=== PATIENT | female | born 1955 | race Caucasian/White ===

== ENCOUNTER → 2022-06-15 | Outpatient (CLI) | payer MEDICARE, BC, SELFPAY ==
[2022-06-15 12:03] LABS: Hematocrit 40.7 % (37-47); Hemoglobin 12.8 g/dL (12.0-15.0); Mean Corp Hgb Conc 31.4 g/dL (32-36); Mean Corpuscular Volume 92.1 fL (81-99); Mean Platelet Vol. 11.4 fl (6.2-12.0); Platelet Count 208 K/mm3 (150-450); RBC Distribution Width CV 15.5 % (11.6-14.6); RBC Distribution Width SD 53.1 fl (35.1-43.9); Red Blood Count 4.42 M/mm3 (4.2-5.4); White Blood Count 6.8 K/mm3 (4.4-11.0)
[2022-06-15 12:26] LABS: Anion Gap 2 (5-15); BUN 14 mg/dL (7-18); Calcium,Total 9.1 mg/dL (8.5-10.1); Chloride 106 mmol/L (98-107); Creatinine, Serum 1.17 mg/dL (0.55-1.02); EST Glomerular Filtration Rate 49 mL/min (>60); Est Glom Filt Rate - Afr Amer 59 mL/min (>60); Glucose 94 mg/dL (74-106); Potassium 4.4 mmol/L (3.5-5.1); Sodium Level 140 mmol/L (136-145)
== END | disposition home or self-care (01) ==
PROVIDERS: Visit Provider Urology
DX: Z01.812 Encounter for preprocedural laboratory examination (principal)
CPT/HCPCS: 36415; 80048; 85027

== ENCOUNTER → 2022-06-16 | Outpatient (CLI) | payer MEDICARE, BC, SELFPAY ==
--- NOTE | 2022-06-16 12:33 | EKG12_ITS ---
Test Reason : PRE OP Blood Pressure : / mmHG Vent. Rate : 076 BPM Atrial Rate : 076 BPM P-R Int : 156 ms QRS Dur : 070 ms QT Int : 372 ms P-R-T Axes : 031 -23 043 degrees QTc Int : 418 ms Normal sinus rhythm Left ventricular hypertrophy Abnormal ECG Confirmed by SOULEYMANE FINLEY, JORGE ([id number]), assignment editor GINA OSUNA ([id number]) on 06/17/2022 11:18:08 AM Referred By: Marlo Schmitt Confirmed By:JORGE COMER MD
== END | disposition home or self-care (01) ==
LOC: PSN 12:31
PROVIDERS: Referring Provider Urology; Visit Provider Urology
DX: Z01.810 Encounter for preprocedural cardiovascular examination (principal)
CPT/HCPCS: 93005

== ENCOUNTER → 2022-06-21 | Outpatient (CLI) | payer MEDICARE, BC, SELFPAY ==
--- NOTE | 2022-06-21 13:34 | RAD_ITS ---
STUDY: X-RAY - ABDOMEN/PELVIS REASON FOR EXAM: Female, 66 years old. HYDRONEPHROSIS TECHNIQUE: Single AP view of the abdomen / pelvis. COMPARISON: None. FINDINGS: There is a moderate amount of colonic fecal material. A right-sided double-J stent catheter is seen with the proximal tip in the proximal right ureter/pelvis with the distal tip in the urinary bladder. Normal soft tissue structures. There are diffuse degenerative changes of the visualized lumbar spine. Prior right total hip replacement. Marked degree of joint space narrowing and osteoarthritis of the left hip joint. RAD/Abdomen Single View IMPRESSION: A right-sided double-J stent catheter is seen with the proximal tip in the region of either the right renal pelvis or proximal right ureter and the distal portion in the right side of the urinary bladder. Electronically Signed: Eb Hughes MD at 14:27 EDT ,
== END | disposition home or self-care (01) ==
LOC: RAD 13:28
PROVIDERS: Referring Provider Urology; Visit Provider Urology
DX: N13.1 Hydronephrosis with ureteral stricture, not elsewhere classified (principal)
CPT/HCPCS: 74018

== ENCOUNTER 2022-06-22 05:20 | Day surgery (SDC) | payer MEDICARE, BC, SELFPAY ==
[2022-06-22] MEDS: Lactated Ringers 1,000 ML 15 ML IV (06:25)
[2022-06-22 06:32] VITALS: BP 148/70; PULSE 60; RESP 18; TEMP 36.5; O2SAT 98; BMI 30.7
[2022-06-22] MEDS: Cefazolin 2 GM in 0.9% Normal Saline 100 ML IV (07:19)
[2022-06-22] MEDS: Lidocaine Jelly 2% 20 ML Syringe (URO-JET) 1 APPLIC (07:33)
--- NOTE | 2022-06-22 07:41 | OP.PCM_ITS ---
Report of Operation Date of Procedure: 06/22/22 Pre-Operative Diagnosis: Right hydronephrosis severe with ureteral stricture Post-Operative Diagnosis: Same Surgery/Procedure Performed:: Cystoscopy right retrograde pyelogram interpretation of fluoroscopic images and right stent placement Description of Surgical Findings:: Indication is a 66-year-old female who had a percutaneous procedure for a very large impacted stone in the proximal ureter there was concern that she could develop a scar tissue in the kidney the kidney could scarred down and follow-up in my office she did have hydronephrosis on the right side it took her to surgery did a retrograde pyelogram confirmed a stricture in the proximal ureter place a 6 Micronesian by 26 cm stent she states the first 3 days she had no pain whatsoever was really happy with the results and then suddenly she developed pain on Tuesday came to the office we did a KUB demonstrated the stent had migrated out of position and was not draining the kidney anymore so today took her back the next day today for a cystoscopy stent placement Patient was taken back to the operating room after smooth induction of a MAC local she was placed in dorsolithotomy position. The urethra vaginal area prepped and draped in usual sterile fashion, went into the bladder 21 Micronesian rigid cystourethroscope, grabbed the existing stent, pulled out the meatus, under fluoroscopy I confirmed that the stent was not in good position had migrated down the ureter, I then advanced a wire through the stent, fortunate the wire went through the area of stricture quite easily and up into the kidney and coiled, I then advanced a 5 Micronesian open-ended catheter behind this performed a retrograde pyelogram to confirm severely hydronephrotic right kidney, I then backloaded the stent off this and then put the wire up in the kidney and coiled it, I backloaded the scope over the wire, I then decided to put in a 7 Micronesian 26 cm stent I think with a little larger stent more stiffness the stent will migrate. So after putting the 7 Micronesian then I went up all the way to the kidney without any difficulties. I pulled the wire the stent coiled in the kidney, x- ray was taken to document proper position, and then coiled in the bladder, I drained the bladder patient anesthetic was reversed and she will be taken back to the PACU in good condition and she will follow-up she will get a renal scan to evaluate function and we can either consider a nephrectomy if it is poor for poorly functioning kidney or a repair if she is still has good function of the kidney.. Surgeon: Marlo Schmitt Type of Anesthesia: MAC and Topical Anesth Drains: 7 fr stent Admit VTE Documentation VTE Present on Admission: No VTE Mechan Device Prophylaxis: SCD's
--- NOTE | 2022-06-22 07:44 | DCINST_ITS ---
Discharge Instructions Diet Discharge Diet: No restrictions and Light diet - advance as tolerated Follow Up Care Please Follow Up With: Marlo Schmitt MD Test Results: Test results from this visit will be discussed in further detail at your follow- up appointment, if applicable. Discharge Plan Admission Primary Reason for Your Visit: cysto stent right Attending Provider: Marlo Schmitt Primary Care Provider: Care Physician,Maricel Primary Discharge Orders/Prescriptions Prescriptions: Continued citalopram 20 mg tablet 20 mg PO DAILY atorvastatin 20 mg tablet 20 mg PO DAILY montelukast 10 mg tablet 10 mg PO DAILY Label Comments: TAKE 1 TABLET BY MOUTH EVERY DAY IN THE EVENING lisinopril 5 mg tablet 5 mg PO DAILY Label Comments: TAKE 1 TABLET BY MOUTH EVERY DAY gabapentin 300 mg capsule 300 mg PO QHS PRN (Reason: Pain) celecoxib 200 mg capsule 200 mg PO DAILY PRN PRN (Reason: Pain) estradiol 0.01 % (0.1 mg/gram) Cream 1 appful VAGINAL .2X PER WEEK Rx Instructions: for 14 days Referrals / Follow Up: Marlo Schmitt MD [Med Staff - Active Staff] - Care Physician,No Primary [Primary Care Provider] - Disposition Disposition (needs filled in before D/C Order can be placed): Home, Self Care
--- NOTE | 2022-06-22 07:45 | HP.PCM_ITS ---
HPI - General HPI Narrative OSWALDO PAYNE, is a 66 F who presents for stent placement on the right side the stent had migrated out of position. [facility] Medical History (Updated 06/21/22 @ 15:48 by Melissa Ambriz) Alcohol use Ambulates with cane Arthritis Asthma Depression Easy bruising Hay fever Hemorrhoids High cholesterol History of hiatal hernia Hypertension Kidney disease Knee pain Lab test negative for COVID-19 virus Non-smoker Post-menopausal SOB (shortness of breath) Home Medications atorvastatin 20 mg tablet 20 mg PO DAILY 06/01/21 [History Last Taken Unknown] citalopram 20 mg tablet 20 mg PO DAILY 06/01/21 [History Last Taken Unknown] lisinopril 5 mg tablet 5 mg PO DAILY 06/01/21 [History Last Taken Unknown] montelukast 10 mg tablet 10 mg PO DAILY 06/01/21 [History Last Taken Unknown] celecoxib 200 mg capsule 200 mg PO DAILY PRN PRN Pain 06/13/22 [History Last Taken Unknown] gabapentin 300 mg capsule 300 mg PO QHS PRN Pain 06/13/22 [History Last Taken Unknown] estradiol 0.01% (0.1 mg/gram) vaginal cream 1 appful vaginal .2X PER WEEK 06/21/22 [History Last Taken Unknown] Allergy/AdvReac Type Severity Reaction Status Date / Time erythromycin base Allergy Anaphylaxis Verified 06/21/22 15:35 mushroom Allergy Vomiting Verified 06/21/22 15:35 Family History Mother CVA (cerebral vascular accident) Heart disease Arthritis Dementia Father Dementia CVA (cerebral vascular accident) Surgical History (Updated 06/21/22 @ 15:41 by Melissa Ambriz) History of colonoscopy History of cystoscopy History of lithotripsy History of nephrostomy History of total hip replacement Social History Smoking Status: Never smoker alcohol intake: never Vital Signs Vital Signs Vital Signs: 06/22/22 06:32 06/22/22 06:32 Temperature 97.7 F L Temperature Source Temporal Pulse Rate 60 Respiratory Rate 18 Respiratory Pattern Normal Blood Pressure 148/70 H Blood Pressure Mean 96 Blood Pressure Source Monitor Blood Pressure Position Semi-Fowlers Blood Pressure Location Right Arm Pulse Ox 98 Oxygen Delivery Method Room Air Weight Weight: 78.744 kg Body Mass Index (BMI) 30.7
[2022-06-22 07:53] VITALS: BP 125/56; BP 148/70; PULSE 65; RESP 18; TEMP 36.3; O2SAT 99
[2022-06-22 07:59] VITALS: BP 127/63; BP 148/70; PULSE 59; RESP 18; O2SAT 95
[2022-06-22 08:15] VITALS: BP 128/64; BP 148/70; PULSE 62; RESP 16; O2SAT 97
[2022-06-22 08:22] VITALS: BP 137/70; BP 148/70; PULSE 58; RESP 16; TEMP 36.4; O2SAT 99
[2022-06-22 08:55] VITALS: BP 148/70
== END 2022-06-22 09:08 | disposition home or self-care (01) ==
LOC: SDC 05:22 → AC 05:23
PROVIDERS: Referring Provider Urology; Visit Provider Urology
PROC: (CPT 52332; principal; 2022-06-22 07:20)
DX: N13.1 Hydronephrosis with ureteral stricture, not elsewhere classified (principal); I10 Essential (primary) hypertension; E78.00 Pure hypercholesterolemia, unspecified; Z79.899 Other long term (current) drug therapy
CPT/HCPCS: 52332; 00910; 76000; J7120; C1769; C1874; J2405

== ENCOUNTER → 2022-07-01 | Outpatient (CLI) | payer MEDICARE, BC, SELFPAY ==
--- NOTE | 2022-07-01 09:53 | NM_ITS ---
CLINICAL: 66-year-old female with history of hydronephrosis. 99m Tc MAG3 DIURETIC RENAL SCINTIGRAPHY COMPARISON: None available FINDINGS: Following the intravenous administration of 11.0 mCi of 99m Tc MAG3, renal images reveal: 1. The flow study demonstrates decreased, delayed arterial phase distribution of the radiopharmaceutical to the right kidney. Flow to the left kidney is relatively normal. 2. Immediate static delayed nephrogram images depict prompt, homogeneous tracer concentration by the renal parenchyma of the left kidney. Uptake in the right kidney is delayed and decreased. Collecting structure visualization is noted at approximately 2 minutes following tracer concentration in the left kidney and 8-10 minutes post radiopharmaceutical administration in the right kidney. Washout of the radiopharmaceutical by the renal parenchyma of the left kidney is qualitatively normal and is delayed and decreased in the right renal unit. 3. The [id number]-[id number] ratio of total renal parenchymal function was calculated to be 27/33. Furosemide 10 mg was administered intravenously. The post Lasix T ? washout of the left kidney collecting system was calculated to be less than 10 minutes and > 20 minutes in the right kidney, (normal < 10 minutes). After an initial decrease in count statistics in the right kidney collecting system following LASIX administration there is a relative plateau. NM/Renal Scan w/ Pharm Intervent IMPRESSION: 1. There is scintigraphic evidence of preserved left kidney renal parenchymal-cortical function. Cortical dysfunction is defined in the right kidney renal parenchyma. 2. A normal response to induced diuresis is demonstrated in the left kidney. An abnormal response to LASIX administration is defined in the right kidney which may represent functional and/or mechanical obstruction. 3. The specificity of the above abnormal response involving the right kidney collecting system is decreased when the contribution to total renal parenchymal function is less than 30%. (Tim and Abbi, Urol Radiol 5: 189, 1983 Cristiana and Devon, Urol Clin NA 12: 133, 1985). Electronically Signed: Jairo Arturo, at 22:12 EDT ,
== END | disposition home or self-care (01) ==
PROVIDERS: PCP Nurse Practitioner Family; Referring Provider Urology; Visit Provider Urology
DX: N13.1 Hydronephrosis with ureteral stricture, not elsewhere classified (principal)
CPT/HCPCS: 78708; A9562; J1940

== ENCOUNTER 2022-07-16 12:57 | Day surgery (SDC) | payer MEDICARE, BC, SELFPAY ==
--- NOTE | 2022-07-16 | VAGMU_PTH ---
PATIENT: OSWALDO PAYNE LOC: [facility] U#:[id number] AGE/SX: 66/F ROOM: RE07/16/[address]: Dr. Sabiha Jaeger DO : 1955 BED: DIS: 07/16/2022 SPEC #: [id number] RECD: 07/16/22 17:38 STATUS: YAAKOV CHICHI #: [id number] YOLANDA: 07/16/22 00:[address]: Sabiha Jaeger DEPT: SURGICAL PATHOLOGY RECD BY: Khoi Jiménez ENTERED: 07/20/22 08:55 SP TYPE: VAG MUCOSA OTHR DR: SCOTT Tee Tissues: Vagina, NOS Procedures: Surgery Specimen Level IV HEADER OPERATION: D & C, vaginal polyp PRE-OP DIAGNOSIS: Cervical polyp TISSUE SUBMITTED: Vaginal polyp MICROSCOPIC DIAGNOSIS Vaginal polyp, biopsy: Benign squamous epithelial polyp with reactive changes. VLADIMIR:leander 07/21/2022 MICROSCOPIC DESCRIPTION Slides are reviewed. GROSS DESCRIPTION Received in fixative is one container labeled with the patient's name and designated vaginal polyp. The specimen consists of a piece of hemorrhagic polypoid tissue measuring 1.2 x 0.5 x 0.2 cm. The entire specimen is submitted in one cassette. / SJ:rg 07/20/2022 TC:5 CPT: 06353
[2022-07-16 13:39] VITALS: BP 125/59; PULSE 69; RESP 16; TEMP 37.1; O2SAT 96; BMI 31.1
[2022-07-16] MEDS: Lactated Ringers 1,000 ML 15 ML IV (13:45)
[2022-07-16] MEDS: Lidocaine 1% (20 ml mdv) 20 ML Vial (15:40)
[2022-07-16] MEDS: Silver Nitrate (BKC) 1 EACH (15:43)
--- NOTE | 2022-07-16 15:46 | DCINST_ITS ---
Discharge Instructions Diet Discharge Diet: No restrictions Activity Discharge Activity: May Drive (once you are more than 24 hours out from surgery) and May Shower (once you are more than 24 hours out from surgery) May resume sexual activity in: 1 week (no intercourse, tampons, hot tubs, baths, or pools for 1 week) Weight Bearing Status: Weight bearing as tolerated Lifting Restrictions: none Dressing / Incision Cleanse incision/area with: Soap & Water Follow Up Care Please Follow Up With: Sabiha Jaeger DO When: 1 week Test Results: Test results from this visit will be discussed in further detail at your follow- up appointment, if applicable. Discharge Plan Admission Primary Reason for Your Visit: surgery Attending Provider: Sabiha Jaeger Primary Care Provider: Mara Oviedo NP Discharge Orders/Prescriptions Prescriptions: Continued citalopram 20 mg tablet 20 mg PO DAILY atorvastatin 20 mg tablet 20 mg PO DAILY montelukast 10 mg tablet 10 mg PO DAILY Label Comments: TAKE 1 TABLET BY MOUTH EVERY DAY IN THE EVENING lisinopril 5 mg tablet 5 mg PO DAILY Label Comments: TAKE 1 TABLET BY MOUTH EVERY DAY gabapentin 300 mg capsule 300 mg PO QHS PRN (Reason: Pain) celecoxib 200 mg capsule 200 mg PO DAILY PRN PRN (Reason: Pain) estradiol 0.01 % (0.1 mg/gram) Cream 1 appful VAGINAL .2X PER WEEK Rx Instructions: for 14 days fluticasone propionate [Flovent HFA] 220 mcg/actuation Hfa Aerosol Inhaler 1 puff INHALATION DAILY multivitamin Capsule 1 cap PO DAILY Referrals / Follow Up: Mara Oviedo NP, CONFIGURATION MANAGEMENT SPECIALIST-C [Primary Care Provider] - Disposition Disposition (needs filled in before D/C Order can be placed): Home, Self Care
--- NOTE | 2022-07-16 15:48 | OP.PCM_ITS ---
Problems Associated Problem List Diagnoses (1) Vaginal polyp: Report of Operation Date of Procedure: 07/16/22 Pre-Operative Diagnosis: Polyp noted on pelvic US Post-Operative Diagnosis: Vaginal polyp, stenotic cervix, atrophic vagina Surgery/Procedure Performed:: Exam under anesthesia, vaginal polyp removal Description of Surgical Findings:: Narrow introitus. Atrophic vagina and cervix flush with vaginal tissue. Stenotic cervix. A small < 1cm vaginal polyp was noted along the anterior vaginal wall underneath the urethra. Surgeon: Sabiha Jaeger sulfonation equipment operator: None Type of Anesthesia: MAC Special Medications: None Specimen's removed: Vaginal polyp Drains: None Estimated Blood Loss (mL): < 50 Fluids Replaced: 800 Description of Procedure: Patient was taken to the operating room where MAC anesthesia was induced and found to be adequate. She was prepped and draped in the dorsal lithotomy position using yellowfin stirrups. A weighted speculum was unable to be placed in the vagina. A right angle retractor was placed and the cervix was unable to be visualized. A bimanual exam was performed noting an atrophic cervix, normal sized uterus that is mobile, limited bimanual exam given obesity. A medium size speculum was then placed in the vagina and the cervix was able to be visualized. Good support of the uterus was noted. The cervix and vaginal tissue was atrophic. The cervix was flush with the flush with the vagina. No obvious cervical os was noted. The anterior lip of the cervix was grasped with a single-tooth tenaculum. The cervix was attempted to be dilated but unable to be dilated. During the vaginal exam a small, subcentimeter vaginal polyp was noted along the anterior vaginal wall. 2 cc of 1% lidocaine was injected at the base, and the polyp was retracted using an Allis clamp. Using scissors the polyp was removed at the base, and the base was made hemostatic with silver nitrate and pressure. Bleeding was hemostatic. All instruments removed from the vagina. Vaginal sweep was performed. Instrument and sponge counts were correct. The patient was taken to recovery in stable condition. Grafts/Implants Used: None Procedure Start Time: 15:26 Procedure Stop Time: 15:44 Complications None Admit VTE Documentation VTE Present on Admission: No VTE Mechan Device Prophylaxis: SCD's
[2022-07-16 15:54] VITALS: BP 125/59; BP 143/75; PULSE 77; RESP 16; TEMP 36.4; O2SAT 96
[2022-07-16 16:00] VITALS: BP 125/59; BP 141/67; PULSE 74; RESP 16; O2SAT 96
[2022-07-16 16:05] VITALS: BP 125/59; BP 134/73; PULSE 69; RESP 16; O2SAT 97
[2022-07-16 16:10] VITALS: BP 125/59; BP 128/71; PULSE 71; RESP 16; TEMP 36.9; O2SAT 100
[2022-07-16 16:35] VITALS: BP 125/59
== END 2022-07-16 16:47 | disposition home or self-care (01) ==
LOC: SDC 12:57 → AC 13:01
PROVIDERS: PCP Nurse Practitioner Family; Referring Provider Obstetrics & Gynecology; Visit Provider Obstetrics & Gynecology
PROC: 0UB98ZZ Excision of Uterus, Via Natural or Artificial Opening Endoscopic (ICD-10-PCS; CPT 58558; principal; 2022-07-16 14:35)
DX: N88.8 Other specified noninflammatory disorders of cervix uteri (principal); N84.2 Polyp of vagina; F32.A Depression, unspecified; J45.909 Unspecified asthma, uncomplicated; E78.00 Pure hypercholesterolemia, unspecified; I10 Essential (primary) hypertension; Z79.899 Other long term (current) drug therapy
CPT/HCPCS: 58558; 00952; 86850; 86900; 86901; 88304; 88305; J7120; J2405

== ENCOUNTER → 2022-08-17 | Outpatient (CLI) | payer MEDICARE, BC, SELFPAY | END | disposition home or self-care (01) | LOC: LABSPEC 16:52 | PROVIDERS: PCP Nurse Practitioner Family; Visit Provider Urology | DX: N13.1 Hydronephrosis with ureteral stricture, not elsewhere classified (principal) | CPT/HCPCS: 87086; 87088 ==

== ENCOUNTER → 2023-05-30 | Outpatient (CLI) | payer MEDICARE, BC, SELFPAY ==
--- NOTE | 2023-05-30 11:54 | NM_ITS ---
CLINICAL: 67-year-old female with history of hydronephrosis. 99m Tc MAG3 DIURETIC RENAL SCINTIGRAPHY COMPARISON: Previous diuretic renal scintigraphy study dated 07/01/2022 FINDINGS: Following the intravenous administration of 10.0 mCi of 99m Tc MAG3, renal images reveal: 1. The flow study demonstrates normal arterial phase distribution of the radiopharmaceutical to the left kidney, flow to the right kidney is delayed decreased. 2. Immediate static delayed nephrogram images depict prompt and homogeneous tracer concentration by the renal parenchyma of the left kidney. Uptake in the right kidney is delayed-diminished. Collecting structure visualization is defined at approximately 2 minutes post tracer administration the left kidney and 4 minutes post radiopharmaceutical administration in the right kidney. Washout of the radiopharmaceutical is qualitatively normal in the left kidney and prolonged-delayed in the right kidney. There is spontaneous drainage of the radiopharmaceutical in the left kidney collecting system prior to furosemide administration. Persistent collecting system activity is noted in the right kidney prior to Lasix administration. 3. The jhfgq-rz-comr ratio of total renal parenchymal function was calculated to be 38/62 compared to 27/73 defined on the prior examination. Furosemide 10 mg was administered intravenously. The post Lasix T ? washout of the of the right kidney collecting system was calculated to be > 20 minutes, (normal < 10 minutes). Analysis of the right kidney collecting system post Lasix time/activity curve demonstrates decreasing count statistics. NM/Renal Scan w/ Pharm Intervent IMPRESSION: 1. Left kidney cortical parenchymal function remains intact. Persistent evidence of right kidney parenchymal dysfunction is defined. 2. An abnormal response to Lasix administration is defined in the right kidney collecting system consistent with the presence of mechanical and/or functional obstruction. 3. Overall compared to the previous diuretic renal scintigraphy study dated 07/01/2022, there is minimal interval change. Improved differential function is defined on the current examination. Electronically Signed: Jairo Morris, at 19:35 EDT ,
[2023-05-30] MEDS: Furosemide 20 MG/2 ML VIAL 10 MG IV (12:29)
== END | disposition home or self-care (01) ==
PROVIDERS: PCP Nurse Practitioner Family; Referring Provider Urology; Visit Provider Urology
DX: N13.1 Hydronephrosis with ureteral stricture, not elsewhere classified (principal)
CPT/HCPCS: 78708; 96374; A9562; J1940